=== PATIENT | male | born 1990 | race Caucasian/White ===

== ENCOUNTER 2018-06-29 16:50 | Emergency (ER) | payer OTHER ==
[2018-06-29] MEDS ORDERED: IBUPROFEN 600 MG TAB PO ONE (17:00)
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
[2018-06-29 19:11] VITALS: BP 122/82
== END 2018-06-29 19:03 | disposition home or self-care (01) ==
LOC: EDUNIT#
DX: S92.355A Nondisplaced fracture of fifth metatarsal bone, left foot, initial encounter for closed fracture (principal); Y04.8XXA Assault by other bodily force, initial encounter